=== PATIENT | female | born 1945 | race Caucasian/White ===

== ENCOUNTER → 2024-02-18 | Outpatient (CLI) | payer OTHER | END | disposition home or self-care (01) | LOC: RAH 09:05 | PROVIDERS: ATTEND Internal Medicine | DX: M47.26 Other spondylosis with radiculopathy, lumbar region (principal); M51.16 Intervertebral disc disorders with radiculopathy, lumbar region; M96.1 Postlaminectomy syndrome, not elsewhere classified; M48.061 Spinal stenosis, lumbar region without neurogenic claudication | CPT/HCPCS: 72148 ==

== ENCOUNTER → 2024-08-14 | Outpatient (CLI) | payer OTHER ==
--- NOTE | 2024-08-14 11:30 | HMCIMG ---
LUMBAR W FLEXION/EXTENSION, 4 views INDICATION: Spinal stenosis, lumbar region with neurogenic claudication FINDINGS: There is been surgery at L4-5 with bilateral pedicle screws and posterior fixation bars. There is a disc stabilization device as well. There is 3 mm anterior subluxation of L5 on S1, there is degenerative narrowing of the L5-S1 interspace. Alignment and interspace heights are otherwise normal. Flexion and extension views were performed. The L5-S1 subluxation increases to 6 mm, this decreases to 2 mm on the extension view. Alignment appears otherwise unremarkable. IMPRESSION: 1. 3 to 4 mm retrosubluxation of L5 on S1, this increases to 6 mm on flexion and decreases to 2 mm on extension. 2. Postop changes at L4-5 without evidence of complication.
== END | disposition home or self-care (01) ==
LOC: RAH 07:59
PROVIDERS: ATTEND Anesthesiology
DX: S33.39XA Dislocation of other parts of lumbar spine and pelvis, initial encounter (principal); M48.07 Spinal stenosis, lumbosacral region; X58.XXXA Exposure to other specified factors, initial encounter; Y93.89 Activity, other specified; Y92.89 Other specified places as the place of occurrence of the external cause; Y99.8 Other external cause status
CPT/HCPCS: 72114

== ENCOUNTER → 2024-09-29 | Outpatient (CLI) | payer OTHER ==
--- NOTE | 2024-09-29 14:09 | HMCIMG ---
US VENOUS DOPPLER BILATERAL REASON: EDEMA COMPARISON: None Technique: Bilateral venous doppler ultrasound was performed with spectral analysis and color flow imaging technique. FINDINGS: There is a normal appearance of the common femoral, deep femoral, the profunda femoris and popliteal veins. Proximal calf veins appear normal as well. There is normal response to compression and augmentation. There is no evidence of deep venous thrombosis. IMPRESSION: Normal bilateral lower extremity venous Doppler ultrasound.
== END | disposition home or self-care (01) ==
LOC: RAH 12:56
PROVIDERS: ATTEND Internal Medicine
DX: R60.0 Localized edema (principal)
CPT/HCPCS: 93970

== ENCOUNTER 2025-06-23 06:22 | Observation (INO) | payer OTHER ==
--- NOTE | 2025-06-21 10:21 | EKG ---
[facility] Test Date: 2025-06-21 Test Time: 11:07:40 Pat Name: LO DE LA ROSA Department: [facility] Room: [facility] Gender: F Reel And Rewinder Operator: [id number] : 1945 Requested By: JUAN VAZQUEZ Order Number: [id number] Reading MD: Leland Kinney Measurements Intervals [place] Rate: 67 P: 48 IN: 162 QRS: -23 QRSD: 109 T: 11 QT: 415 QTc: 438 Interpretive Statements Sinus rhythm Probable left atrial enlargement No previous ECG available for comparison Electronically Signed On 06-23-2025 11:49:25 PRESALES SENIOR SPECIALIST by Leland Kinney Please click the below link to view image of tracing.
[2025-06-21 10:38] VITALS: BP 146/63; PULSE 80; RESP 18; TEMP 98.4
[2025-06-21 10:41] LABS: INR 1.0 (0.85-1.15)
--- NOTE | 2025-06-21 10:55 | NUR ---
PREOP INCENTIVE SPIROMETRY TEACHING DONE BY KELSIE PATEL
[2025-06-23] VITALS (27 sets, daily range): BP systolic 102–150; BP diastolic 49–75; PULSE 65–82; RESP 13–20; TEMP 97.1–98; O2SAT 96–98
[~2025-06-23] VITALS: Ht 165.1 cm; Wt 68.9 kg
[~2025-06-23 06:22] MED LIST: EVOL140P3 SQ; OLME20TA68 PO; OMEP20CA12 PO; PRAM0.5T12 PO; TIZA4CAP8 PO
[2025-06-23] MEDS ORDERED: PROMETHAZINE HCL 25 MG/ML 1ML AMPULE IM PRN (08:00)
[2025-06-23] MEDS ORDERED: GLYCOPYRROLATE 0.2 MG/ML 5 ML VIAL ONE (08:40)
[2025-06-23] MEDS ORDERED: LIDOCAINE PF 100MG/5ML (2%) SYRINGE 5ML ONE (08:40)
[2025-06-23] MEDS ORDERED: NEOSTIGMINE METHYLSULFATE 1MG/ML IV ONE (08:41)
[2025-06-23] MEDS: TRANEXAMIC ACID 1000MG/10ML ONE (08:55)
[2025-06-23] MEDS ORDERED: FERROUS FUMARATE 324 MG TABLET PO PRN (09:30)
[2025-06-23] MEDS ORDERED: PoTASSium chloRIDE 20MEQ ER 20 MEQ ERTAB PO PRN (09:30)
[2025-06-23] MEDS ORDERED: PoTASSium chl 10% ELIXIR 20MEQ 20 MEQ/15 ML UDCUP PO PRN (09:30)
[2025-06-23] MEDS ORDERED: CALCIUM CARB 500MG PO PRN (09:30)
[2025-06-23] MEDS: TRANEXAMIC ACID 1000MG/10ML IV ONE ×2 (10:40)
--- NOTE | 2025-06-23 10:46 | OP ---
Operative Note: DATE OF PROCEDURE: 06/23/25 PREOPERATIVE DIAGNOSIS: Right knee osteoarthritis. POSTOPERATIVE DIAGNOSIS: Right knee osteoarthritis. PROCEDURE PERFORMED: Right knee total knee arthroplasty. SURGEON: Janie Gonzalez MD CONSUMER MARKETING SPECIALIST: Shonna Landin and Kaylee Linton. ANESTHESIA: General with adductor canal block. ANESTHESIA: RADIO INTERFERENCE EXPERT Singer. ESTIMATED BLOOD LOSS: 50cc. COMPLICATIONS: None. DRAINS: None. SPECIMENS REMOVED: resected bone. Not sent to pathology. IMPLANTS: [employer] Journey II BCS size 6 Oxinium femur, size 3 tibial base plate, 35 mm patella, 9 mm polyethylene STATEMENT OF MEDICAL NECESSITY: The patient is a 79-year-old female who suffers from right knee osteoarthritis failing conservative management. After discussion of the risks, benefits, and alternatives with the patient, they voluntarily agreed to undergo the aforementioned procedure. DESCRIPTION OF PROCEDURE: Patient was properly identified in the preoperative holding area. Surgical site marking was verified and surgery consent reviewed. The patient was then taken to the operating room and placed in supine position on the OR table. After induction of general anesthesia, preoperative antibiotics were given, all bony prominences were well-padded, and a well padded tourniquet was applied but not inflated at this time. The right lower extremity was then prepped and draped in usual sterile fashion. Surgical time out was done verifying correct surgery, side, site, and location to be performed. We then began the procedure by exsanguinating the limb using an Esmarch and inflating the tourniquet to 350 mmHg. At this point, we made an anterior midline incision using a 10 blade, coming down sharply the level of the fascia. Skin flaps were elevated medially and laterally. We then obtained a clean 10 blade and performed a standard medial parapatellar arthrotomy. We excised the infrapatellar fat pad. We performed our soft tissue releases off of the tibia. We transected the ACL and removed the anterior portion of the medial & lateral meniscus. We then brought the knee into hyperflexion with the patella everted. We used our entry reamer to enter the femoral canal. We then placed our intramedullary cutting guide for our distal femoral cutting block. We then performed our distal femoral osteotomy ensuring appropriate rotation and removed the bony wafer. We then removed these pins and block and then used jig 2 to size the distal femur with the after mentioned size found. We then placed our 5-in-1 cutting block in 3 degrees of external rotation and took our 5 cuts ensuring to protect the patellar tendon and the collateral ligaments. We then removed the cutting block and our bony fragments using a curved osteotome. We then placed our PCL retractor subluxating the tibia anteriorly. Using an extra medullary tibial cutting guide, we hung the block for our proximal tibial cut taking 2 mm off the more diseased portion. Prior to pinning this block in place, we ensured appropriate varus/valgus alignment and posterior slope similar to the [place] slope of the patient's knee. We then performed our proximal tibial osteotomy and removed the bony wafer using Bovie electrocautery to release any remaining soft tissue attachments. We then used our tibial sizing paddle and checked once more for varus & valgus alignment and found this to be appropriate. At this point, we pinned our tibial paddle in place. We then removed the PCL retractor and subluxated the tibia posteriorly while we placed our femoral trial component. We then finished preparing the notch with the reamer and box chisel. The notch portion of the trial femoral component was then placed. A posterior stabilized polyethylene, size 9 trial was placed. The knee was then taken through range of motion and found to have stable full range of motion. We then placed a bump under the ankle and everted the patella to perform our freehand cut of the undersurface the patella. We then sized our patella and reamed to the lug holes for this. We placed our trial patellar component and begin to take the knee through range of motion. The patella had mild lateral tracking that improved after a small lateral release. At this point we began removing our trial components and punched the tibial keel prior to removing our tibial trial component. Final components were opened and cement was mixed on the back table while we i njected local cocktail in the posterior capsule. We then thoroughly irrigated out the bone and dried the bony surfaces. We cemented our tibial component in place ensuring to remove excess cement and placed our trial polyethylene. We then cemented our femoral component in place once again taking time to ensure excess cement was removed leg was brought into full extension to help squeeze the excess cement from around the femoral component. We then brought the knee back in a flexion to remove this portion of the cement at this point we placed the ankle in a bump thoroughly irrigated off the patellar component and cemented our patellar component in standard fashion again removing excess cement. While we waited for the cement to cure, we thoroughly irrigated out the wound with normal saline. Once our cement had cured, we took the knee through a range of motion and found full and stable range of motion. We then elected to use the size 9 polyethylene and removed our trial polyethylene. We impacted our final polyethylene component in place in standard fashion and took the knee through a range of motion check once more. This was satisfactory so we began to repair the arthrotomy using #1 Vicryl in interrupted [id number] fashion. Subcutaneous tissue was repaired using 2-0 Vicryl. Running subcuticular 3-0 Monocryl stitch with Dermabond placed over this for the skin. We then applied a foam barrier dressing and a pressure dressing consisting of 4 x 4's fluffs and an Tima wrap. The tourniquet was then deflated. Patient was awakened from anesthesia, and they were taken to the recovery room in stable condition. JANIE GONZALEZ MD Jun 23, 2025 10:46
--- NOTE | 2025-06-23 11:43 | HMCIMG ---
EXAM: CR right Knee, 2 View. CLINICAL HISTORY: S/P RT TKA SURGERY COMPARISON: None provided. FINDINGS: BONES: No acute fracture or aggressive appearing osseous lesion. JOINTS: Right total knee arthroplasty near anatomic alignment with no periprosthetic fracture appreciated. Appropriate postsurgical changes within the soft tissues about the knee joint. IMPRESSION: 1. Status post right total knee arthroplasty, near anatomic alignment. 2. No acute findings. /[place]
[2025-06-23] MEDS: HYDROcodone/APAP 5/325 1 TAB TABLET PO PRN (14:35)
--- NOTE | 2025-06-23 15:20 | NUR ---
arrived from pacu patient alert and oriented x4, states mild pain to right knee at this time, 4/10 rating, denies need for pain meds at this time. RT called for IS
[2025-06-23] MEDS: HYDROcodone/APAP 5/325 1 TAB TABLET ONE (15:34)
[2025-06-23] MEDS: 0.9%NACL 1000ML 1,000 ML IV SCH (16:01)
[2025-06-23] MEDS: LACTATED RINGERS 1000ML 1,000 ML IV ONE (16:01)
[2025-06-23] MEDS: ERGOCALCIFEROL (VITAMIN D2) 50,000 UNIT CAPSULE PO ONE (21:33)
[2025-06-24] VITALS (7 sets, daily range): BP systolic 119–127; BP diastolic 50–64; PULSE 82–99; RESP 16–18; TEMP 98–98.7; O2SAT 97–100
[2025-06-24 05:27] LABS: NUCLEATED RED BLOOD CELLS 0.0 % (0.0-0.19); PLATELET COUNT (AUTO) 154.0 K/uL (130-400); RED BLOOD CELL COUNT(AUTO) 3.16 MIL/uL (4.00-5.50); RED CELL DISTRIBUTION WIDTH 12.3 % (11.0-15.5); WHITE BLOOD COUNT (AUTO) 6.6 K/uL (4.8-10.8)
[2025-06-24 05:42] LABS: CREATININE 0.8 mg/dL (0.5-1.0); GLOMERULAR FILTR. RATE CALC 76.0 mL/min (>90); GLUCOSE,RANDOM 102.0 mg/dL (70-105); SODIUM SERUM 136.0 mmol/L (136-145); UREA NITROGEN, BLOOD 16.0 mg/dL (7-18)
--- NOTE | 2025-06-24 08:09 | PN ---
Ortho postop day one. This morning patient is out of bed seated in a chair. Resting and reporting no acute distress. Adequate pain control at present time. Vital signs have remained stable. Afebrile. Voiding on her own already had BM this morning. Laboratory results reviewed. Noted to have a drop in hemoglobin and hematocrit as expected after TKA patient is currently asymptomatic we will continue to observe and address per protocol as necessary. Reinforced incentive spirometry. SCD sleeves are present but currently not on. Tima bandage his already been removed. The dressing is intact. The operative site has ice present. Gastrocnemius soft nontender. She is provided a footstool and she is instructed on extension and flexion while she is seated. She has ambulated yesterday 50 ft with physical therapy and DC plan is home health/PT. Assessment: Status post right total knee arthroplasty. Acute postoperative blood loss anemia. Plan: Continue with Dr. Gonzalez's TKA protocol and discharge planning. Acute postoperative blood loss anemia addressed with the protocol as necessary Vitals/Labs Vital Signs Date Time Temp Pulse Resp B/P (MAP) Pulse Ox O2 Delivery O2 Flow Rate FiO2 06/24/25 03:34 98.1 83 16 122/54 95 Room Air 06/23/25 19:12 0 21 Laboratory Tests 06/24/25 05:16 Medications Current Medications Cefazolin Sodium 2 gm STK-MED ONCE .ROUTE Last administered on 06/23/25at 08:55; Start 06/23/25 at 07:03; Stop 06/23/25 at 07:03; Status DC Lactated Ringer's 1,000 ml @ As Directed STK-MED ONCE IV; Start 06/23/25 at 07:03; Stop 06/23/25 at 07:03; Status DC Ondansetron HCl 4 mg AD PRN IVP; Start 06/23/25 at 08:00; Stop 06/23/25 at 15:35; Status DC Metoclopramide HCl 10 mg AD PRN IVP; Start 06/23/25 at 08:00; Stop 06/23/25 at 15:35; Status DC Promethazine HCl 25 mg AD PRN IM; Start 06/23/25 at 08:00; Stop 06/23/25 at 15:35; Status DC Ketorolac Tromethamine 15 mg AD PRN IV; Start 06/23/25 at 08:00; Stop 06/23/25 at 16:00; Status DC Morphine Sulfate 2 mg AD PRN IVP; Start 06/23/25 at 08:00; Stop 06/23/25 at 15:35; Status DC Fentanyl Citrate 25 mcg Q5MIN PRN IVP Last administered on 06/23/25at 11:51; Start 06/23/25 at 08:00; Stop 06/23/25 at 15:35; Status DC Naloxone HCl 0.1 mg AD PRN IVP; Start 06/23/25 at 08:00; Stop 06/23/25 at 15:35; Status DC Ketorolac Tromethamine 30 mg STK-MED ONCE .ROUTE Last administered on 06/23/25at 10:04; Start 06/23/25 at 08:02; Stop 06/23/25 at 08:02; Status DC Ropivacaine 150 mg STK-MED ONCE .ROUTE Last administered on 06/23/25at 10:04; Start 06/23/25 at 08:02; Stop 06/23/25 at 08:02; Status DC Lidocaine HCl 100 mg STK-MED ONCE .ROUTE; Start 06/23/25 at 08:40; Stop 06/23/25 at 08:40; Status DC Ondansetron HCl 4 mg STK-MED ONCE .ROUTE; Start 06/23/25 at 08:40; Stop 06/23/25 at 08:40; Status DC Glycopyrrolate 1 mg STK-MED ONCE .ROUTE; Start 06/23/25 at 08:40; Stop 06/23/25 at 08:40; Status DC Propofol 200 mg STK-MED ONCE IV; Start 06/23/25 at 08:40; Stop 06/23/25 at 08:41; Status DC Neostigmine Methylsulfate 10 mg STK-MED ONCE IV; Start 06/23/25 at 08:41; Stop 06/23/25 at 08:41; Status DC Rocuronium [place] 50 mg STK-MED ONCE .ROUTE; Start 06/23/25 at 08:41; Stop 06/23/25 at 08:41; Status DC Fentanyl Citrate 100 mcg STK-MED ONCE .ROUTE; Start 06/23/25 at 08:41; Stop 06/23/25 at 08:41; Status DC Sodium Chloride 1,000 ml @ 100 mls/hr Q10H IV Last administered on 06/23/25at 21:37; Start 06/23/25 at 09:30; Stop 06/24/25 at 09:29 Polyethylene Glycol 17 gm DAILY PO; Start 06/24/25 at 09:00; Stop 07/24/25 at 08:59 Bisacodyl 10 mg DAILY PRN RC; Start 06/26/25 at 09:30; Stop 07/26/25 at 09:29 Ketorolac Tromethamine 15 mg Q6H PRN IV; Start 06/24/25 at 09:30; Stop 06/29/25 at 09:29 Ferrous Fumarate 324 mg DAILY PRN PO; Start 06/23/25 at 09:30; Stop 07/23/25 at 09:29 Ondansetron HCl 4 mg Q6H PRN IVP; Start 06/23/25 at 09:30; Stop 07/23/25 at 09:29 Calcium Carbonate 500 mg Q12H PRN PO; Start 06/23/25 at 09:30; Stop 07/23/25 at 09:29 Cefazolin Sodium 2 gm Q8H IVP Last administered on 06/23/25at 21:35; Start 06/23/25 at 14:30; Stop 06/23/25 at 22:31; Status DC Cyclobenzaprine HCl 10 mg Q8H PRN PO; Start 06/23/25 at 09:30; Stop 07/23/25 at 09:29 Aspirin 325 mg DAILY PO; Start 06/24/25 at 09:00; Stop 07/24/25 at 08:59 Ketorolac Tromethamine 15 mg Q8H IV Last administered on 06/24/25at 01:40; Start 06/23/25 at 09:30; Stop 06/24/25 at 01:31; Status DC Docusate Sodium 100 mg BID PO Last administered on 06/23/25at 21:33; Start 06/23/25 at 21:00; Stop 07/23/25 at 20:59 Potassium Chloride 100 ml @ 100 mls/hr AD PRN IV; Start 06/23/25 at 09:30; Stop 07/23/25 at 09:29 Potassium Chloride 20 meq AD PRN PO; Start 06/23/25 at 09:30; Stop 07/23/25 at 09:29 Potassium Chloride 20 meq AD PRN PO; Start 06/23/25 at 09:30; Stop 07/23/25 at 09:29 Tramadol HCl 50 mg Q6H PRN PO; Start 06/23/25 at 09:30; Stop 06/28/25 at 09:29 Acetaminophen/ Hydrocodone Bitart Q4H PRN PO Last administered on 06/24/25at 05:48; Start 06/23/25 at 09:30; Stop 06/28/25 at 09:29 Home Med [id number] SQ; Start 07/07/25 at 09:00; Stop 08/06/25 at 08:59 Losartan Potassium 100 mg DAILY PO; Start 06/24/25 at 09:00; Stop 07/24/25 at 08:59 Pantoprazole Sodium 40 mg DAILY PO; Start 06/24/25 at 09:00; Stop 07/24/25 at 08:59 Pramipexole Dihydrochloride 0.5 mg TID PO Last administered on 06/23/25at 21:33; Start 06/23/25 at 14:00; Stop 07/23/25 at 13:59 Phenylephrine HCl 10 mg STK-MED ONCE IV; Start 06/23/25 at 09:10; Stop 06/23/25 at 09:10; Status DC Tranexamic Acid 1,000 mg STK-MED ONCE .ROUTE Last administered on 06/23/25at 08:55; Start 06/23/25 at 09:48; Stop 06/23/25 at 09:48; Status DC Tranexamic Acid 1,000 mg STK-MED ONCE IV; Start 06/23/25 at 00:00; Stop 06/23/25 at 00:01; Status Cancel Ketorolac Tromethamine 30 mg STK-MED ONCE .ROUTE; Start 06/23/25 at 10:47; Stop 06/23/25 at 10:48; Status DC Ondansetron HCl 4 mg STK-MED ONCE .ROUTE; Start 06/23/25 at 10:48; Stop 06/23/25 at 10:48; Status DC Tranexamic Acid 1,000 mg STK-MED ONCE IV Last administered on 06/23/25at 10:40; Start 06/23/25 at 10:40; Stop 06/23/25 at 11:11; Status DC Fentanyl Citrate 100 mcg STK-MED ONCE .ROUTE; Start 06/23/25 at 11:12; Stop 06/23/25 at 11:12; Status DC Fentanyl Citrate 100 mcg STK-MED ONCE .ROUTE; Start 06/23/25 at 11:49; Stop 06/23/25 at 11:50; Status DC Acetaminophen/ Hydrocodone Bitart 1 tab STK-MED ONCE .ROUTE; Start 06/23/25 at 14:34; Stop 06/23/25 at 14:34; Status DC Ergocalciferol 50,000 unit ONCE ONCE PO Last administered on 06/23/25at 21:33; Start 06/23/25 at 20:30; Stop 06/23/25 at 20:31; Status DC MAUREEN ELMORE BOILERMAKER LOFTSMAN Jun 24, 2025 08:09
[2025-06-24] MEDS: ASPIRIN 325MG EC TAB PO SCH (09:27)
[2025-06-24] MEDS: CYCLOBENZAPRINE HCL 10 MG TABLET PO PRN (09:31)
--- NOTE | 2025-06-24 14:35 | NUR ---
DCP CM MET WITH PT AND THIS MORNING, INITIAL ASSESSMENT DONE. PATIENT IS INDEPENDENT PRIOR TO SURGERY, LIVES AT HOME WITH HER . DENIES ANY EQUIPMENT/SERVICES. FEELS SAFE TO GO BACK HOME, STILL DRIVE, AND FAMILY ABLE TO ASSIST WITH TRANSPORTATION AND NEEDS NECESSARY. DISCUSSED MD RECOMMENDATIONS FOR HOME W/HH FOR PT AND PT WILL BE NEEDING A STANDARD WALKER, PT AND AGREEABLE, PT SIGNED CONSENT [facility] FOR ANY IN NETWORK HH AND DME. DCP HOME W/HH AND DME ONCE APPROVED. CM TO CONTINUE TO FOLLOW UP.
--- NOTE | 2025-06-24 14:45 | NUR ---
ORTHO COORDINATOR: TEACHING REGARDING DVT AND PNEUMONIA PREVENTION, PAIN MANAGEMENT AND PAIN EXPECTATIONS. PATIENT IN BED. B SCD SLEEVES IN PLACE AND FUNCTIONING. DRESSING TO RIGHT KNEE CLEAN, DRY AND INTACT. INCENTIVE SPIROMETER AT ON BEDSIDE TRAY, PATIENT VERBALIZED PROPER FREQUENCY OF USE. PATIENT RETURN DEMONSTRATED PROPER FOOT FLEXION AND EXTENSION EXERCISES. PATIENT REPORTS PAIN CONTROLLED. JUST COMPLETED PHYSICAL THERAPY SESSION. PATIENT INTENDS TO DISCHARGE HOME WITH HOME HEALTH PHYSICAL THERAPY, PROCESS REVIEWED. QUESTIONS ANSWERED. PATIENT ENCOURAGED TO CONTINUE USE OF INCENTIVE SPIROMETER UNTIL PRESURGICAL LEVEL OF ACTIVITY ACHIEVED, RATIONALE PROVIDED; TO CONTINUE FOOT FLEXION AND EXTENSION EXERCISES, RATIONALE PROVIDED; TO CONTINUE PREMEDICATING PRIOR TO PHYSICAL THERAPY AND PERIODS OF HIGH ACTIVITY, TO HYDRATE AND INCREASE AMBULATION. PATIENT VERBALIZED UNDERSTANDING. NO ADDITIONAL QUESTIONS OR CONCERNS.
[2025-06-25] VITALS: BP 122/65; PULSE 94; RESP 18; TEMP 98.4
[2025-06-25 04:00] VITALS: BP 126/45; PULSE 66; RESP 19; TEMP 97.8
[2025-06-25 07:15] VITALS: O2SAT 99
[2025-06-25 08:13] VITALS: BP 105/62; PULSE 98; RESP 16; TEMP 99.1
[2025-06-25 11:30] VITALS: BP 114/46; PULSE 112; RESP 16; TEMP 99.1
[2025-06-25] MEDS ORDERED: HYDR-4060 PO (15:12)
[2025-06-25] MEDS ORDERED: CYCL-309 PO (15:12)
[2025-06-25] MEDS ORDERED: DOCU-116 PO (15:12)
[2025-06-25] MEDS ORDERED: ASPI-891 PO (15:12)
--- NOTE | 2025-06-25 16:29 | NUR ---
removed sl barbara well cath intact dressing to removal site dc instructions given verbal understanding dcpapers signed awaiting transportation hm
--- NOTE | 2025-06-25 16:40 | NUR ---
escorted off unit via wc with wc to front of hospital dc hm stable cond
--- NOTE | 2025-06-25 17:13 | PN ---
Ortho postop day two Patient reports she is doing well and ready to go home. States pain is improving. No complaints. Vital signs stable, afebrile No acute distress, alert and oriented x3 Nonlabored breathing Resting comfortably sitting in chair at the time of my visit Right lower extremity -surgical dressing clean dry and intact -dressing is removed in incision is noted to be clean, dry, and intact with adjacent abrasion/dried blood -calf is soft nontender, negative Homans sign -patient's tolerates full extension with assistance stretching Ambulated 60 ft twice with physical therapy yesterday Has HHPT approved for discharge Postop day two status post right total knee arthroplasty doing well Asymptomatic acute blood loss anemia -dc home today Vitals/Labs Vital Signs Date Time Temp Pulse Resp B/P (MAP) Pulse Ox O2 Delivery O2 Flow Rate FiO2 06/25/25 11:30 99.1 112 16 114/46 100 Room Air 06/25/25 07:15 0 21 Medications Current Medications Cefazolin Sodium 2 gm STK-MED ONCE .ROUTE Last administered on 06/23/25at 08:55; Start 06/23/25 at 07:03; Stop 06/23/25 at 07:03; Status DC Lactated Ringer's 1,000 ml @ As Directed STK-MED ONCE IV; Start 06/23/25 at 07:03; Stop 06/23/25 at 07:03; Status DC Ondansetron HCl 4 mg AD PRN IVP; Start 06/23/25 at 08:00; Stop 06/23/25 at 15:35; Status DC Metoclopramide HCl 10 mg AD PRN IVP; Start 06/23/25 at 08:00; Stop 06/23/25 at 15:35; Status DC Promethazine HCl 25 mg AD PRN IM; Start 06/23/25 at 08:00; Stop 06/23/25 at 15:35; Status DC Ketorolac Tromethamine 15 mg AD PRN IV; Start 06/23/25 at 08:00; Stop 06/23/25 at 16:00; Status DC Morphine Sulfate 2 mg AD PRN IVP; Start 06/23/25 at 08:00; Stop 06/23/25 at 15:35; Status DC Fentanyl Citrate 25 mcg Q5MIN PRN IVP Last administered on 06/23/25at 11:51; Start 06/23/25 at 08:00; Stop 06/23/25 at 15:35; Status DC Naloxone HCl 0.1 mg AD PRN IVP; Start 06/23/25 at 08:00; Stop 06/23/25 at 15:35; Status DC Ketorolac Tromethamine 30 mg STK-MED ONCE .ROUTE Last administered on 06/23/25at 10:04; Start 06/23/25 at 08:02; Stop 06/23/25 at 08:02; Status DC Ropivacaine 150 mg STK-MED ONCE .ROUTE Last administered on 06/23/25at 10:04; Start 06/23/25 at 08:02; Stop 06/23/25 at 08:02; Status DC Lidocaine HCl 100 mg STK-MED ONCE .ROUTE; Start 06/23/25 at 08:40; Stop 06/23/25 at 08:40; Status DC Ondansetron HCl 4 mg STK-MED ONCE .ROUTE; Start 06/23/25 at 08:40; Stop 06/23/25 at 08:40; Status DC Glycopyrrolate 1 mg STK-MED ONCE .ROUTE; Start 06/23/25 at 08:40; Stop 06/23/25 at 08:40; Status DC Propofol 200 mg STK-MED ONCE IV; Start 06/23/25 at 08:40; Stop 06/23/25 at 08:41; Status DC Neostigmine Methylsulfate 10 mg STK-MED ONCE IV; Start 06/23/25 at 08:41; Stop 06/23/25 at 08:41; Status DC Rocuronium [place] 50 mg STK-MED ONCE .ROUTE; Start 06/23/25 at 08:41; Stop 06/23/25 at 08:41; Status DC Fentanyl Citrate 100 mcg STK-MED ONCE .ROUTE; Start 06/23/25 at 08:41; Stop 06/23/25 at 08:41; Status DC Sodium Chloride 1,000 ml @ 100 mls/hr Q10H IV Last administered on 06/23/25at 21:37; Start 06/23/25 at 09:30; Stop 06/24/25 at 09:29; Status DC Polyethylene Glycol 17 gm DAILY PO Last administered on 06/25/25at 08:30; Start 06/24/25 at 09:00; Stop 07/24/25 at 08:59 Bisacodyl 10 mg DAILY PRN RC; Start 06/26/25 at 09:30; Stop 07/26/25 at 09:29 Ketorolac Tromethamine 15 mg Q6H PRN IV; Start 06/24/25 at 09:30; Stop 06/29/25 at 09:29 Ferrous Fumarate 324 mg DAILY PRN PO; Start 06/23/25 at 09:30; Stop 07/23/25 at 09:29 Ondansetron HCl 4 mg Q6H PRN IVP; Start 06/23/25 at 09:30; Stop 07/23/25 at 09:29 Calcium Carbonate 500 mg Q12H PRN PO; Start 06/23/25 at 09:30; Stop 07/23/25 at 09:29 Cefazolin Sodium 2 gm Q8H IVP Last administered on 06/23/25at 21:35; Start 06/23/25 at 14:30; Stop 06/23/25 at 22:31; Status DC Cyclobenzaprine HCl 10 mg Q8H PRN PO Last administered on 06/24/25at 09:31; Start 06/23/25 at 09:30; Stop 07/23/25 at 09:29 Aspirin 325 mg DAILY PO Last administered on 06/25/25at 08:30; Start 06/24/25 at 09:00; Stop 07/24/25 at 08:59 Ketorolac Tromethamine 15 mg Q8H IV Last administered on 06/24/25at 01:40; Start 06/23/25 at 09:30; Stop 06/24/25 at 01:31; Status DC Docusate Sodium 100 mg BID PO Last administered on 06/25/25at 08:30; Start 06/23/25 at 21:00; Stop 07/23/25 at 20:59 Potassium Chloride 100 ml @ 100 mls/hr AD PRN IV; Start 06/23/25 at 09:30; Stop 07/23/25 at 09:29 Potassium Chloride 20 meq AD PRN PO; Start 06/23/25 at 09:30; Stop 07/23/25 at 09:29 Potassium Chloride 20 meq AD PRN PO; Start 06/23/25 at 09:30; Stop 07/23/25 at 09:29 Tramadol HCl 50 mg Q6H PRN PO Last administered on 06/24/25at 09:31; Start 06/23/25 at 09:30; Stop 06/28/25 at 09:29 Acetaminophen/ Hydrocodone Bitart Q4H PRN PO Last administered on 06/25/25at 06:36; Start 06/23/25 at 09:30; Stop 06/28/25 at 09:29 Home Med [id number] SQ; Start 07/07/25 at 09:00; Stop 08/06/25 at 08:59 Losartan Potassium 100 mg DAILY PO Last administered on 06/25/25at 08:30; Start 06/24/25 at 09:00; Stop 07/24/25 at 08:59 Pantoprazole Sodium 40 mg DAILY PO Last administered on 06/25/25at 08:30; Start 06/24/25 at 09:00; Stop 07/24/25 at 08:59 Pramipexole Dihydrochloride 0.5 mg TID PO Last administered on 06/25/25at 13:27; Start 06/23/25 at 14:00; Stop 07/23/25 at 13:59 Phenylephrine HCl 10 mg STK-MED ONCE IV; Start 06/23/25 at 09:10; Stop 06/23/25 at 09:10; Status DC Tranexamic Acid 1,000 mg STK-MED ONCE .ROUTE Last administered on 06/23/25at 08:55; Start 06/23/25 at 09:48; Stop 06/23/25 at 09:48; Status DC Tranexamic Acid 1,000 mg STK-MED ONCE IV; Start 06/23/25 at 00:00; Stop 06/23/25 at 00:01; Status Cancel Ketorolac Tromethamine 30 mg STK-MED ONCE .ROUTE; Start 06/23/25 at 10:47; Stop 06/23/25 at 10:48; Status DC Ondansetron HCl 4 mg STK-MED ONCE .ROUTE; Start 06/23/25 at 10:48; Stop 06/23/25 at 10:48; Status DC Tranexamic Acid 1,000 mg STK-MED ONCE IV Last administered on 06/23/25at 10:40; Start 06/23/25 at 10:40; Stop 06/23/25 at 11:11; Status DC Fentanyl Citrate 100 mcg STK-MED ONCE .ROUTE; Start 06/23/25 at 11:12; Stop 06/23/25 at 11:12; Status DC Fentanyl Citrate 100 mcg STK-MED ONCE .ROUTE; Start 06/23/25 at 11:49; Stop 06/23/25 at 11:50; Status DC Acetaminophen/ Hydrocodone Bitart 1 tab STK-MED ONCE .ROUTE; Start 06/23/25 at 14:34; Stop 06/23/25 at 14:34; Status DC Ergocalciferol 50,000 unit ONCE ONCE PO Last administered on 06/23/25at 21:33; Start 06/23/25 at 20:30; Stop 06/23/25 at 20:31; Status DC JUAN VAZQUEZ MD Jun 25, 2025 17:12
[2025-07-07] MEDS ORDERED: EVOLOCUMAB SQ SCH (09:00)
== END 2025-06-25 16:35 | disposition home health service (06) ==
LOC: DAH 06:22 → DAHIP 06:23 → 4CH 15:20
PROVIDERS: ADMIT Student in an Organized Health Care Education/Training Program; ATTEND Student in an Organized Health Care Education/Training Program
DX: M17.11 Unilateral primary osteoarthritis, right knee (principal); I10 Essential (primary) hypertension; E78.5 Hyperlipidemia, unspecified; D62 Acute posthemorrhagic anemia; Z79.899 Other long term (current) drug therapy
CPT/HCPCS: 85610; 85730; 84134; 86140; 36415 ×2; 93005; 87641; 27447; 96374; 96376 ×2; 96375; 73560; 97161; 97116 ×5; 80048; 85027; 97530 ×3; G0378 ×55; A4223 ×2; A4663; J7120 ×2; J3010 ×3; J3490 ×4; J2003; J2704; J2405 ×2; J1885 ×4; J2710; J2795; J2371; J0690 ×3; C1776 ×2; A4649 ×2; A4930; C1713; A6255; A4215; A4213; A4222; A4221; A4216